=== PATIENT | male | born 1955 | race Caucasian/White ===

== ENCOUNTER 2021-06-28 08:52 | Outpatient (CLI) | payer MEDICAID, SELFPAY ==
--- NOTE | 2021-06-28 06:00 | DI.RAD_ITS ---
Exam(s) XR PAIN CLINIC SACRIOILIAC 2V EXAM: XR PAIN CLINIC SACRIOILIAC 2V CLINICAL HISTORY: DX: Sacroiliac dysfunction TECHNIQUE: 2D and realtime digital imaging was performed. Radiologist not present. CONTRAST MATERIAL: None. COMPARISON: No exams were available for comparison FINDINGS: Fluoroscopy was provided for pain management therapy. Please refer to procedure report or details. Cumulative dose: Ka,r=not give mGy IMPRESSION: RADIATION DOSE DELIVERED:
[2021-06-28 09:25] VITALS: BP 125/78; PULSE 58; RESP 20; TEMP 36.6; O2SAT 99
[2021-06-28] MEDS: Bupivacaine 0.5% Pres-Free 10 ML VIAL IJ (11:27)
[2021-06-28] MEDS: Lidocaine 1% Pres-Free 5 ML VIAL IJ (11:27)
[2021-06-28] MEDS: Lidocaine 2% Pres-Free 5 ML VIAL IJ (11:28)
[2021-06-28] MEDS: methylPREDNISolone ACETATE 40 MG/ML VIAL IJ ×2 (11:28→11:29)
[2021-06-28 11:30] VITALS: BP 155/90; PULSE 51; RESP 15; O2SAT 97
--- NOTE | 2021-06-28 14:56 | PDOC.PAIN_ITS ---
Pain Clinic Procedure Note Procedure Note Procedure Note: Bilateral Lumbosacral Radiofrequency with Coolief Machine PROCEDURE NOTE Date of Service: June 28, 2021 Patient: Jose Torres Provider: Damien Romano DO, MPH Pre Operative Diagnosis: Lumbosacral Spondylosis without Myelopathy Post Operative Diagnosis: Same Pre-procedure pain; VAS= 8/10 PROCEDURE: Radiofrequency Ablation of medial branches - Bilateral L5 and lateral branches of bilateral S1-S3. Jose Torres was brought into the fluoroscopy suite and positioned into the prone position on the fluoroscopy table and allowed to adjust to a position of comfort. A grounding pad was placed on the left thigh. The lumbar region was widely prepped with a chloraprep solution, allowed to air dry and draped in standard sterile surgical fashion. Local anesthesia was provided by 10 mL of 2% Lidocaine delivered with a 25g needle. A 17g 100mm radiofrequency introducer needle was placed to the planned anatomic targets guided with intermittent fluoroscopy with a perpendicular approach to terminally place at the junction of the superior articular process and the transverse process of the base of the sacral ala on the bilateral for the L5 medial branch nerve and around the lateral S1-S3 foramen bilaterally. The stylets were removed and radiofrequency probes with a 4mm active tip were then inserted. Needle tip position of the probes was verified in the AP, oblique, and lateral views. At each site, the DR/Lateral branch sensory nerve was stimulated at 2 Hz to a maximum 1-2 volts determined to finalize safe needle and electrode placement. The patient was awake and responsive during this portion of the procedure. Each target was anesthetized with 1-2 mL of 2% Lidocaine for anesthesia for lesioning and then each target was lesioned at 80 degrees Celsius for 2 minutes and 30 seconds. Tissue impedences were noted to be between 250 and 500 Ohms. A total of 2cc of Depomedrol (40 mg/cc) was distributed throughout the ablations followed by 1 cc of 0.5% Bupivacaine. Electrodes and needles were then removed and bandages placed over the needle placement sites, the patient then returned to the supine position on a stretcher and transported to the recovery room without hemodynamic, neurologic, or allergic reactions. F luoroscopic images were printed for hard copy recording and digitally archived. Follow up plans and appointments were discussed with the Jose . Post procedure instruction was given as documented in nursing documentation and having met discharge criteria, Jose was discharged from the [facility]. COMMENTS: No apparent complications. Post-procedure pain: VAS= 0/10. F/U with our office as needed. I personally performed this entire procedure. Damien Romano DO, MPH Attending Physician Pain Management
== END 2021-06-28 08:53 | disposition home or self-care (01) ==
LOC: PC 08:54
PROVIDERS: PCP Internal Medicine; Visit Provider Preventive Medicine Occupational Medicine
DX: M47.817 Spondylosis without myelopathy or radiculopathy, lumbosacral region (principal)
CPT/HCPCS: 64635; 64636; 72200; J1030

== ENCOUNTER 2021-11-14 12:12 | Outpatient (CLI) | payer MEDICAID, SELFPAY ==
--- NOTE | 2021-11-14 06:00 | DI.RAD_ITS ---
Exam(s) XR PAIN CLINIC LUMBAR SP 2V EXAM: XR PAIN CLINIC LUMBAR SP 2V CLINICAL HISTORY: Dx: Lumbar Spondylosis TECHNIQUE: 2D and realtime digital imaging was performed. COMPARISON: No exams were available for comparison FINDINGS: C-arm fluoroscopy was utilized by Dr. Romano during reported radiofrequency ablation. Hard copies show needle placement bilaterally at what appear to be the L3-4, L4-5, and L5-S1 levels bilaterally. IMPRESSION: RADIATION DOSE DELIVERED: tiny San=20.59 mGy
[2021-11-14 12:21] VITALS: BP 133/81; PULSE 55; RESP 20; TEMP 36.4; O2SAT 99
[2021-11-14] MEDS: Bupivacaine 0.5% Pres-Free 10 ML VIAL IJ (13:44)
[2021-11-14] MEDS: Lidocaine 2% Pres-Free 5 ML VIAL IJ (13:44)
--- NOTE | 2021-11-14 13:44 | PDOC.PAIN ---
Pain Clinic Procedure Note Procedure Note Procedure Note: Bilateral Lumbar Radiofrequency with Coolief Machine PROCEDURE NOTE Date of Service: November 14, 2021 Patient: Jose Torres Provider: Damien Romano DO, MPH Pre Operative Diagnosis: Lumbosacral Spondylosis without Myelopathy Post Operative Diagnosis: Same Post procedure pain; VAS= 8/10 PROCEDURE: Radiofrequency Ablation of medial branches - Bilateral L3 L4 L5 and lateral branches of bilateral S1. Jose Torres was brought into the fluoroscopy suite and positioned into the prone position on the fluoroscopy table and allowed to adjust to a position of comfort. A grounding pad was placed on the left thigh. The lumbar region was widely prepped with a chloraprep solution, allowed to air dry and draped in standard sterile surgical fashion. Local anesthesia was provided by 6 mL of 2% Lidocaine delivered with a 25g needle. A 17g 100 mm radiofrequency introducer needle was placed to the planned anatomic targets guided with intermittent fluoroscopy with a perpendicular approach to terminally place at the junction of the superior articular process and the transverse process of the bilateral L4, L5, the base of the sacral ala on the bilateral for the L5 medial branch nerve and the area between base of the sacral ala to the S1 foramen bilaterally. The stylets were removed and radiofrequency probes with a 4mm active tip were then inserted. Needle tip position of the probes was verified in the AP, oblique, and lateral views. At each site, the medial branch nerve was stimulated at 2 Hz to a maximum 1-2 volts determined to finalize safe needle and electrode placement. The patient was awake and responsive during this portion of the procedure. Each target was anesthetized with 1-2 mL of 2% Lidocaine for anesthesia for lesioning and then each target was lesioned at 80 degrees Celsius for 2 minutes and 30 seconds. Tissue impedences were noted to be between 250 and 500 Ohms. Electrodes and needles were then removed and bandages placed over the needle placement sites, the patient then returned to the supine position on a stretcher and transported to the recovery room without hemodynamic, neurologic, or allergic reactions. Fluoroscopic images were printed for hard copy recording and digitally archived. POST PROCEDURE EVALUATION: IMPRESSION: 1. Summary of procedure. Medication given is documented in the MAR. 2. The patient will be contacted in 1-3 weeks 3. Estimated Blood Loss: <5 mls 4. Fluoroscopy time: Documented in the EMR. Follow up plans and appointments were discussed with the Christopher . Post procedure instruction was given as documented in nursing documentation and having met discharge criteria, Jose was discharged from the [facility]. COMMENTS: No apparent complications. Post-procedure pain: VAS= 1/10. F/U with our office as needed. I personally performed this entire procedure. Damien Romano DO, MPH Attending Physician Pain Management
[2021-11-14] MEDS: methylPREDNISolone ACETATE 40 MG/ML VIAL IJ (13:45)
[2021-11-14 13:55] VITALS: BP 134/84; PULSE 66; RESP 13; O2SAT 97
== END 2021-11-14 12:13 | disposition home or self-care (01) ==
LOC: PC 12:14
PROVIDERS: PCP Internal Medicine; Visit Provider Preventive Medicine Occupational Medicine
DX: M47.817 Spondylosis without myelopathy or radiculopathy, lumbosacral region (principal)
CPT/HCPCS: 64635; 64636; 72100; J1030

== ENCOUNTER 2022-07-11 11:09 | Outpatient (CLI) | payer MEDICARE, MEDICAID, SELFPAY ==
--- NOTE | 2022-07-11 06:00 | DI.RAD_ITS ---
Exam(s) XR PAIN CLINIC LUMBAR SP 2V EXAM: XR PAIN CLINIC LUMBAR SP 2V CLINICAL HISTORY: Dx: Lumbar Spondylosis TECHNIQUE: 2D and realtime digital imaging was performed. CONTRAST MATERIAL: Refer to procedure report. COMPARISON: No exams were available for comparison FINDINGS: Fluoroscopy was provided for Dr. Romano during the performance of a lumbar radiofrequency ablation. P lease refer to the procedure report for complete details. Ka,r=14.1 mGy IMPRESSION:
--- NOTE | 2022-07-11 06:00 | DI.RAD_ITS ---
Exam(s) XR PAIN CLINIC SACRIOILIAC 2V EXAM: XR PAIN CLINIC SACRIOILIAC 2V CLINICAL HISTORY: Dx: Sacroiliac Joint Dysfunction TECHNIQUE: 2D and realtime digital imaging was performed. CONTRAST MATERIAL: Refer to procedure report. COMPARISON: No exams were available for comparison FINDINGS: Fluoroscopy was provided for Dr. Romano during the performance of a sacroiliac joint injection. Ondina gonzalez refer to the procedure report for complete details. Ka,r=4.88 mGy IMPRESSION:
[2022-07-11 11:27] VITALS: BP 121/79; PULSE 50; RESP 20; TEMP 36.6; O2SAT 98
--- NOTE | 2022-07-11 13:02 | PDOC.PAIN_ITS ---
Date of service: 07/11/22 Time of Service: 13:13 Pain Clinic Procedure Note Procedure Note Procedure Note: INTRA-ARTICULAR SI JOINT INJECTION Jose Torres has been referred to the [facility] for intra- articular SI joint injection. COMMENTS: He had a severe injury to his sacrum 30 years ago and had a recent SI MRI. His pre-procedure pain VAS was 8/10 to the right SIJ area. We are also doing the L3-L5 medial branch RFA and right S1 lateral branch RFA Dx: Sacroiliac joint dysfunction Patient was interviewed and the medical record reviewed. There were no medical, pharmacologic, radiographic or other structural contraindications to attempting fluoroscopically guided intra-articular SI joint injection. Risks and expected side effects as well as potential benefit of the procedure were reviewed and voiced concerns addressed. The printed consent form was signed and witnessed. Standard time-out procedure was performed. Patient was placed in the prone position on the fluoroscopy table and automated blood pressure cuff and pulse oximeter applied. The skin entry point for approaching the right SI joint was identified under the most advantageous fluoroscopic view and marked. Following thorough Chlorhexadine preparation of the skin and draping and 1% lidocaine infiltration of the skin entry point and subcutaneous tissues, a 22 gauge spinal needle was placed under fluoroscopic guidance into the right SI joint was identified under the most advantageous fluoroscopic view and marked. Intra-articular placement was confirmed by a clear arthrogram resulting from the injection of 0.25ml Omnipaque 240, 1ml 1% lidocaine, and 40mg Depomedrol were injected intra-articularily with an initial reproduction of a significant component of the usual pain. Vital signs were stable throughout the procedure and were as recorded in the docflowsheet by the nursing staff. If given, dosages of intravenous drugs for anxiolysis and analgesia were documented in MAR. Follow up plans and appointments were discussed with the patient. Post procedure instruction was given as documented in nursing documentation and having met discharge criteria, and was discharged from the [facility]. COMMENTS: Post-procedure pain VAS was 1/10 to the right SIJ area. Damien Romano DO, MPH [facility]-Pain Management [facility] for [facility] Right Lumbar Radiofrequency with Coolief Machine PROCEDURE NOTE Date of Service: July 11, 2022 Patient: Jose Torres Provider: Damien Romano DO, MPH Pre Operative Diagnosis: Lumbosacral Spondylosis without Myelopathy Post Operative Diagnosis: Same Pre procedure pain; VAS= 8/10 PROCEDURE: Radiofrequency Ablation of medial branches - RT L3, L4, L5 and lateral branch of right S1. Jose Torres was brought into the fluoroscopy suite and positioned into the prone position on the fluoroscopy table and allowed to adjust to a position of comfort. A grounding pad was placed on the left thigh. The lumbar region was widely prepped with a chloraprep solution, allowed to air dry and draped in standard sterile surgical fashion. Local anesthesia was provided by 5 mL of 2 % Lidocaine delivered with a 25g needle. A 17g 100 mm radiofrequency introducer needle was placed to the planned anatomic targets guided with intermittent fluoroscopy with a perpendicular approach to terminally place at the junction of the superior articular process and the transverse process of the right L4, L5, the base of the sacral ala on the right for the L5 medial branch nerve and the area between base of the sacral ala to the S1 foramen on the right. The stylets were removed and radiofrequency probes with a 4mm active tip were then inserted. Needle tip position of the probes was verified in the AP, oblique, and lateral views. At each site, the medial branch nerve was stimulated at 2 Hz to a maximum 1-2 volts determined to finalize safe needle and electrode placement. The patient was awake and responsive during this portion of the procedure. Each target was anesthetized with 1-2 mL of 2 % Lidocaine for anesthesia for lesioning and then each target was lesioned at 80 degrees Celsius for 2 minutes and 30 seconds. Tissue impedences were noted to be between 250 and 500 Ohms. I then injected 1/4 cc of Depomedrol (40 mg/cc) followed by 1 cc of 0.5% Bupivacaine at each segmental sensory nerve. Electrodes and needles were then removed and bandages placed over the needle placement sites, the patient then returned to the supine position on a stretcher and transported to the recovery room without hemodynamic, neurologic, or allergic reactions. Fluoroscopic images were printed for hard copy recording and digitally archived. POST PROCEDURE EVALUATION: IMPRESSION: 1. Summary of procedure. Medication given is documented in the MAR. 2. The patient will be contacted in 1-3 weeks 3. Estimated Blood Loss: <5 mls 4. Fluoroscopy time: Documented in the EMR. Follow up plans and appointments were discussed with the Jose . Post procedure instruction was given as documented in nursing documentation and having met discharge criteria, Jose was discharged from the [facility]. COMMENTS: No apparent complications. Post-procedure pain: VAS= 2/10 to the right low back. Damien Romano DO, MPH [facility]-Pain Management [facility] for [facility] CC: Chalo Alexis
[2022-07-11] MEDS: Bupivacaine 0.5% Pres-Free 10 ML VIAL IJ (13:22)
[2022-07-11] MEDS: Lidocaine 2% Pres-Free 5 ML VIAL IJ (13:22)
[2022-07-11] MEDS: methylPREDNISolone ACETATE 40 MG/ML VIAL IJ (13:23)
[2022-07-11] MEDS: Omnipaque 240 MG/ML 50 ML BTL IJ (13:24)
[2022-07-11 13:25] VITALS: BP 144/87; PULSE 50; RESP 20; O2SAT 98
== END 2022-07-11 11:10 | disposition home or self-care (01) ==
LOC: PC 11:13
PROVIDERS: PCP Internal Medicine; Visit Provider Preventive Medicine Occupational Medicine
DX: M53.3 Sacrococcygeal disorders, not elsewhere classified (principal); M54.50 Low back pain, unspecified; M47.817 Spondylosis without myelopathy or radiculopathy, lumbosacral region
CPT/HCPCS: 27096; 64635; 64636; 72100; 72200; G0260; J1030; Q9967

== ENCOUNTER 2022-11-13 10:00 | Outpatient (CLI) | payer MEDICARE, MEDICAID, SELFPAY ==
--- NOTE | 2022-11-13 06:00 | DI.RAD_ITS ---
Exam(s) XR PAIN CLINIC SACRIOILIAC 2V EXAM: XR PAIN CLINIC SACRIOILIAC 2V CLINICAL HISTORY: Dx: Sacroiliac Joint Dysfunction TECHNIQUE: 2D and realtime digital imaging was performed. CONTRAST MATERIAL: Refer to procedure report. COMPARISON: No exams were available for comparison FINDINGS: Fluoroscopy was provided for Dr. Romano during the performance of a right sacroiliac joint injection. Please refer to the procedure report for complete details. Ka,r=4.1 mGy IMPRESSION:
[2022-11-13 10:31] VITALS: BP 116/78; PULSE 61; RESP 20; TEMP 36.6; O2SAT 98
[2022-11-13] MEDS: methylPREDNISolone ACETATE 80 MG/ML VIAL IJ (11:10)
[2022-11-13] MEDS: Omnipaque 240 MG/ML 50 ML BTL IJ (11:10)
[2022-11-13 11:16] VITALS: BP 158/82; PULSE 58; RESP 17; O2SAT 99
--- NOTE | 2022-11-13 14:24 | PDOC.PAIN ---
Date of service: 11/13/22 Time of Service: 11:30 Pain Clinic Procedure Note Procedure Note Procedure Note: INTRA-ARTICULAR SI JOINT INJECTION Jose Torres has been referred to the [facility] for intra-articular SI joint injection. COMMENTS: He had this procedure completed on 07/11/22 and had great relief until he fractured his Tibia and Fibula 6 days later skiing. He had surgery and has been walking in a walking boot, all of which has irritated his low back. Pre-Procedure pain VAS was 7/10. Dx: Sacroiliac joint dysfunction Patient was interviewed and the medical record reviewed. There were no medical, pharmacologic, radiographic or other structural contraindications to attempting fluoroscopically guided intra-articular SI joint injection. Risks and expected side effects as well as potential benefit of the procedure were reviewed and voiced concerns addressed. The printed consent form was signed and witnessed. Standard time-out procedure was performed. Patient was placed in the prone position on the fluoroscopy table and automated blood pressure cuff and pulse oximeter applied. The skin entry point for approaching [right/left/bilateral] SI joints was identified under the most advantageous fluoroscopic view and marked. Following thorough Chlorhexadine preparation of the skin and draping and 1% lidocaine infiltration of the skin entry point and subcutaneous tissues, a 22 gauge spinal needle was placed under fluoroscopic guidance into [right/left/bilateral] SI joints was identified under the most advantageous fluoroscopic view and marked. Intra-articular placement was confirmed by a clear arthrogram resulting from the injection of 0.25ml Omnipaque 240, 1ml 1% lidocaine, and 40mg Depomedrol were injected intra-articularily with an initial reproduction of a significant component of the usual pain. Vital signs were stable throughout the procedure and were as recorded in the docflowsheet by the nursing staff. If given, dosages of intravenous drugs for anxiolysis and analgesia were documented in MAR. Follow up plans and appointments were discussed with the patient. Post procedure instruction was given as documented in nursing documentation and having met discharge criteria, and was discharged from the [facility] Management Center. COMMENTS: Post-procedure pain VAS was 1/10. Damien Romano DO, MPH [facility]-Pain Management [facility] for [facility] CC: Chalo Alexis
== END 2022-11-13 10:01 | disposition home or self-care (01) ==
PROVIDERS: PCP Internal Medicine; Visit Provider Preventive Medicine Occupational Medicine
DX: M46.1 Sacroiliitis, not elsewhere classified (principal); M54.50 Low back pain, unspecified
CPT/HCPCS: 27096; 72200; J1040; Q9967

== ENCOUNTER 2023-04-02 12:50 | Outpatient (CLI) | payer MEDICARE, MEDICAID, SELFPAY ==
--- NOTE | 2023-04-02 06:00 | DI.RAD_ITS ---
Exam(s) XR PAIN CLINIC SACRIOILIAC 2V EXAM: XR PAIN CLINIC SACRIOILIAC 2V CLINICAL HISTORY: Dx: Sacroiliac Joint Dysfunction TECHNIQUE: 2D and realtime digital imaging was performed. CONTRAST MATERIAL: Refer to procedure report. COMPARISON: No exams were available for comparison FINDINGS: Fluoroscopy was provided for Dr. Romano during the performance of a right sacroiliac joint injection. Please refer to the procedure report for complete details. Ka,r=4.32 mGy IMPRESSION:
--- NOTE | 2023-04-02 06:00 | DI.RAD_ITS ---
Exam(s) XR PAIN CLINIC LUMBAR SP 2V EXAM: XR PAIN CLINIC LUMBAR SP 2V CLINICAL HISTORY: Dx: Lumbar Spondylosis TECHNIQUE: 2D and realtime digital imaging was performed. CONTRAST MATERIAL: Refer to procedure report. COMPARISON: No exams were available for comparison FINDINGS: Fluoroscopy was provided for Dr. Romano during the performance of a pain management therapy. Please r efer to the procedure report for complete details. Ka,r=17.7 mGy IMPRESSION:
[2023-04-02 13:01] VITALS: BP 113/80; PULSE 62; RESP 20; TEMP 36.6; O2SAT 98
[2023-04-02 14:19] VITALS: BP 138/82; PULSE 65; RESP 12; O2SAT 96
--- NOTE | 2023-04-02 14:25 | PDOC.PAIN_ITS ---
Date of service: 04/02/23 Time of Service: 14:25 Pain Managment Procedure Note Procedure Note Procedure Note: PROCEDURE NOTE RIGHT LUMBAR RADIOFREQUENCY ABLATION Date of Service: April 02, 2023 Patient:? Jose Torres? Provider:? Damien Romano DO, MPH Jose Torres [facility] right Lumbar Radiofrequency Ablation with the [employer] Machine.? Pre Operative Diagnosis: Lumbosacral Spondylosis without Myelopathy Post Operative Diagnosis: Same Pre procedure pain; VAS= 7/10 Comments: He had >8 months of relief from his last RFA to these levels. PROCEDURE: Radiofrequency Ablation of medial branches - right L3, L4, L5 and lateral branches of bilateral S1. Jose?was interviewed and the medical record was reviewed.? There were no medical, pharmacologic, radiographic or other structural contraindications to attempting fluoroscopically guided RIGHT Lumbar Radiofrequency Ablation.?Risks and expected side effects as well as potential benefit of the procedure were reviewed with Jose, and the patient's voiced concerns were addressed.? The printed consent form was signed.? Standard time-out procedure was performed. Jose was brought into the fluoroscopy suite and positioned into the prone position on the fluoroscopy table and allowed to adjust to a position of comfort. A grounding pad was placed on the left abdomen. The sterile field was prepared using chlorhexidine preparation of the skin and sterile draping. Local anesthesia superficial and deep was provided by local infiltration of 2% lidocaine. A 17g 100 mm radiofrequency introducer needle was placed to the planned anatomic targets guided with intermittent fluoroscopy with a perpendicular approach to terminally place at the junction of the superior articular process and the transverse process of the right L4, L5, the base of the sacral ala on the right for the L5 medial branch nerve and the area between base of the sacral ala to the S1 foramen on the right. The stylets were removed and radiofrequency probes with a 4mm active tip were then inserted. Needle tip position of the probes was verified in the AP, oblique, and lateral views. At each site, the medial branch nerve was stimulated at 2 Hz to a maximum 1-2 volts determined to finalize safe needle and electrode placement. The patient was awake and responsive during this portion of the procedure. Each target was anesthetized with 1-2 mL of 2 % Lidocaine for anesthesia for lesioning and then each target was lesioned at 80 degrees Celsius for 2 minutes and 30 seconds. Tissue impedances were noted to be between 250 and 500 Ohms. There was no unusual discomfort expressed by Jose. I next injected 1/4 cc of Depomedrol (40 mg/cc) followed by 1 cc of 0.5% Bupivacaine at each segmental sensory nerve. The needles were withdrawn without difficulty and bandages placed over the needle placement sites, the patient was observed and was without hemodynamic, neurologic, or allergic reactions. Fluoroscopic images were digitally archived. POST PROCEDURE EVALUATION: IMPRESSION: 1. Summary of procedure. Medication given is documented in the MAR. 2. Follow up plan: Jose to contact [facility] needed.?This procedure may be repeated if the patient achieves at least 50% improvement in pain/function for at least 6 months. 3. Estimated Blood Loss: <5 mls 4. Fluoroscopy time: Documented in the EMR. Follow up plans and appointments were discussed with the Jose. Post procedure instruction was given as documented in nursing documentation and having met discharge criteria, Jose was [facility] from the [facility]. COMMENTS: No apparent complications. Post-procedure pain: VAS= 0/10. I personally completed the entire procedure. DAMIEN ROMANO DO, MPH ABPM&R - Subspecialty board certification in Pain Medicine [facility] [facility] PROCEDURE NOTE RIGHT INTRA-ARTICULAR SACROILIAC JOINT INJECTION Date of Service: April 02, 2023 Patient: Jose Torres Provider: Damien Romano DO, MPH COMMENTS: I previously evaluated the patient in the office and their symptoms in relation to the sacroiliac joint pain have remained the same. He acheived >6 months of pain relief from the last right sacroiliac joint injection. Pre-operative diagnosis: Sacroiliac joint dysfunction Post-operative diagnosis: Same Pre-procedure pain: VAS= 7/10 Jose Torres has been referred to our [facility] for a Right intra-articular Sacroiliac joint injection. Jose was interviewed and the medical record reviewed. There were no medical, pharmacologic, radiographic or other structural contraindications to at tempting a fluoroscopically-guided, contrast-enhanced, intra-articular Sacroiliac joint injection. The risks, benefits, and potential side effects of this procedure were reviewed with the patient. Questions and concerns were addressed. After it was clear that Jose was fully informed about the procedure, the printed consent form was signed by the patient and myself. Jose was placed in the prone position on the fluoroscopy table and an automated blood pressure cuff, 3 lead EKG, and pulse oximeter were applied. The skin entry point for approaching the Right sacroiliac joint was identified under the most advantageous fluoroscopic view and marked. Following thorough Chlorhexadine preparation of the skin and draping with sterile surgical drapes, 2 mls of 1% lidocaine was infiltrated into the skin at the entry point and the surrounding subcutaneous tissues. Next, a 3.5 22G spinal needle was placed under fluoroscopic guidance into the Right sacroiliac joint. Intra-articular placement was confirmed by a clear arthrogram resulting from the injection of 0.25ml of Omnipaque-240. Next, 1 ml of Depo- Medrol 40 mg/ml was injected intra- articularly with an initial reproduction of a significant component of the usual pain. This was followed with 1 ml of 1% Lidocaine. The needle was then removed without difficulty. (49 ml of Omnipaque-240 was wasted). Jose's vital signs were stable throughout the procedure and were as recorded in nursing records. Follow up plans and appointments were discussed with Jose. Post procedure instructions were given as documented in nursing records. Having met discharge criteria, Jose was [facility] from the [facility]. COMMENTS: Post-procedure pain: VAS= 0/10. If the patient receives at least 50% improvement in pain and/or function for at least 3 months, this procedure can be repeated if needed. I personally performed this entire procedure. DAMIEN ROMANO DO, MPH ABPMR-subspecialty board certification in Pain Medicine [facility]
[2023-04-02] MEDS: Omnipaque 240 MG/ML 50 ML BTL IJ (14:29)
[2023-04-02] MEDS: Bupivacaine 0.5% Pres-Free 10 ML VIAL IJ (14:30)
[2023-04-02] MEDS: Lidocaine 2% Pres-Free 5 ML VIAL IJ (14:31)
[2023-04-02] MEDS: methylPREDNISolone ACETATE 40 MG/ML VIAL IJ (14:32)
== END 2023-04-02 12:51 | disposition home or self-care (01) ==
LOC: PC 12:50
PROVIDERS: PCP Internal Medicine; Visit Provider Preventive Medicine Occupational Medicine
DX: M47.817 Spondylosis without myelopathy or radiculopathy, lumbosacral region (principal); M54.50 Low back pain, unspecified; M53.3 Sacrococcygeal disorders, not elsewhere classified
CPT/HCPCS: 27096; 64635; 64636; 72100; 72200; J1030; Q9967

== ENCOUNTER 2023-11-27 07:53 | Outpatient (CLI) | payer MEDICARE, MEDICAID, SELFPAY ==
[2023-11-27 08:00] VITALS: BP 144/88; PULSE 48; RESP 20; TEMP 36.4; O2SAT 98
--- NOTE | 2023-11-27 08:54 | DI.RAD_ITS ---
Exam(s) XR PAIN CLINIC LUMBAR SP 2V EXAM: XR PAIN CLINIC LUMBAR SP 2V CLINICAL HISTORY: DX: Lumbar spondylosis. TECHNIQUE: Fluoroscopy was provided for the referring physician for guidance with performing pain cl inic injection procedure. COMPARISON: No exams were available for comparison FINDINGS: Please see procedure note for details. Fluoro time: 51.3 seconds RADIATION DOSE DELIVERED: Jaswinderr=12.32 mGy
[2023-11-27 09:00] VITALS: BP 154/87; PULSE 51; RESP 15; O2SAT 97
[2023-11-27] MEDS: Nerve Block Tray 1 EACH MC (09:02)
[2023-11-27] MEDS: Lidocaine 2% Pres-Free 5 ML VIAL IJ (09:02)
[2023-11-27] MEDS: Bupivacaine 0.5% Pres-Free 10 ML VIAL IJ (09:03)
[2023-11-27] MEDS: methylPREDNISolone ACETATE 40 MG/ML VIAL IJ (09:03)
--- NOTE | 2023-11-27 09:05 | PDOC.PAIN_ITS ---
Date of service: 11/27/23 Time of Service: 09:05 Pain Managment Procedure Note Procedure Note Procedure Note: PROCEDURE NOTE RIGHT LUMBAR RADIOFREQUENCY ABLATION Date of Service: November 27, 2023 Patient:? Jose Torres? Provider:? Damien Romano DO, MPH Jose Torres has been [facility] to the [facility] Right Lumbar Radiofrequency Ablation with the [employer] Machine.? Pre Operative Diagnosis: Lumbosacral Spondylosis without Myelopathy Post Operative Diagnosis: Same Pre procedure pain; VAS= 8/10 Comments: He had >8 months of >50% pain relief with his last RFA at these levels. PROCEDURE: Radiofrequency Ablation of medial branches - right L3, L4, L5 and lateral branches of right S1. Jose?was interviewed and the medical record was reviewed.? There were no medical, pharmacologic, radiographic or other structural contraindications to attempting fluoroscopically guided RIGHT Lumbar Radiofrequency Ablation.?Risks and expected side effects as well as potential benefit of the procedure were reviewed with Jose, and the patient's voiced concerns were addressed.? The printed consent form was signed.? Standard time-out procedure was performed. Jose was brought into the fluoroscopy suite and positioned into the prone position on the fluoroscopy table and allowed to adjust to a position of comfort. A grounding pad was placed on the left abdomen. The sterile field was prepared using chlorhexidine preparation of the skin and sterile draping. Local anesthesia superficial and deep was provided by local infiltration of 2% lidocaine. A 17g 100 mm radiofrequency introducer needle was placed to the planned anatomic targets guided with intermittent fluoroscopy with a perpendicular approach to terminally place at the junction of the superior articular process and the transverse process of the right L4, L5, the base of the sacral ala on the right for the L5 medial branch nerve and the area between base of the sacral ala to the S1 foramen on the right. The stylets were removed and radiofrequency probes with a 4mm active tip were then inserted. Needle tip position of the probes was verified in the AP, oblique, and lateral views. At each site, the medial branch nerve was stimulated at 2 Hz to a maximum 1-2 volts determined to finalize safe needle and electrode placement. The patient was awake and responsive during this portion of the procedure. Each target was anesthetized with 1-2 mL of 2 % Lidocaine for anesthesia for lesioning and then each target was lesioned at 80 degrees Celsius for 2 minutes and 30 seconds. Tissue impedances were noted to be between 250 and 500 Ohms. There was no unusual discomfort expressed by Jose. 1/4 cc of Depomedrol (80 mg/cc) followed by 1 cc of 0.5% Marcaine was injected at each segmental sensory nerve. The needles were withdrawn without difficulty and bandages placed over the needle placement sites, the patient was observed and was without hemodynamic, neurologic, or allergic reactions. Fluoroscopic images were digitally archived. POST PROCEDURE EVALUATION: IMPRESSION: 1. Summary of procedure. Medication given is documented in the MAR. 2. Follow up plan: Jose to contact [facility] as needed.?This procedure may be repeated if the patient achieves at least 50% improvement in pain/function for at least 6 months. 3. Estimated Blood Loss: <5 mls 4. Fluoroscopy time: Documented in the EMR. Follow up plans and appointments were discussed with the Sjer. Post procedure instruction was given as documented in nursing documentation and having met discharge criteria, Jose was discharged from the [place] [facility]. COMMENTS: No apparent complications. Post-procedure pain: VAS= 1/10. I personally completed the entire procedure. DAMIEN ROMANO DO, MPH ABPM&R - Subspecialty board certification in Pain Medicine [facility] [facility]
== END 2023-11-27 07:54 | disposition home or self-care (01) ==
LOC: PC 07:53
PROVIDERS: PCP Internal Medicine; Visit Provider Preventive Medicine Occupational Medicine
DX: M54.50 Low back pain, unspecified (principal); M47.817 Spondylosis without myelopathy or radiculopathy, lumbosacral region
CPT/HCPCS: 64635; 64636; 72100; J0665; J1010

== ENCOUNTER 2024-08-19 11:39 | Outpatient (CLI) | payer MEDICARE, MEDICAID, SELFPAY ==
[2024-08-19] VITALS (16 sets, daily range): BP systolic 134–173; BP diastolic 79–115; PULSE 51–66; RESP 12–20; TEMP 37; O2SAT 97–99
--- NOTE | 2024-08-19 13:45 | DI.RAD_ITS ---
Exam(s) XR PAIN CLINIC LUMBAR SP 2V EXAM: XR PAIN CLINIC LUMBAR SP 2V CLINICAL HISTORY: DX: Lumbar Spondylosis. TECHNIQUE: Fluoroscopy was provided for the referring physician for guidance with performing pain cl inic injection procedure. COMPARISON: No exams were available for comparison FINDINGS: Please see procedure note for details. Fluoro time: 54.7 seconds RADIATION DOSE DELIVERED: Jaswinderr=17.55 mGy
[2024-08-19] MEDS: Lidocaine 2% Multi-Dose 20 ML VIAL IJ (13:54)
[2024-08-19] MEDS: Bupivacaine 0.5% Pres-Free 10 ML VIAL IJ (13:54)
[2024-08-19] MEDS: Nerve Block Tray 1 EACH MC (13:55)
[2024-08-19] MEDS: methylPREDNISolone ACETATE 40 MG/ML VIAL IJ (13:55)
--- NOTE | 2024-08-19 13:57 | PDOC.PAIN ---
Date of service: 08/19/24 Time of Service: 13:57 Pain Managment Procedure Note Procedure Note Procedure Note: PROCEDURE NOTE BILATERAL LUMBAR RADIOFREQUENCY ABLATION Date of Service: August 19, 2024 Patient:? Jose Torres? Provider:? Damien Romano DO, MPH Jose Torres has been [facility] to the [facility] for Bilateral Lumbar Radiofrequency Ablation with the [employer] Machine.? Pre Operative Diagnosis: Lumbosacral Spondylosis without Myelopathy ICD-10 M47.816 Post Operative Diagnosis: Same Pre procedure pain; VAS= 7/10 Comments: He had a confirmatory LMBB on the left L3-S1 at [facility] and had great relief. He had >6 months of >50% pain relief with his last right sided RFA. We planned to complete both sides today. PROCEDURE: Radiofrequency Ablation of medial branches - bilateral L3, L4, L5 and lateral branches of bilateral S1. Jose?was interviewed and the medical record was reviewed.? There were no medical, pharmacologic, radiographic or other structural contraindications to attempting fluoroscopically guided BILATERAL Lumbar Radiofrequency Ablation.?Risks and expected side effects as well as potential benefit of the procedure were reviewed with Jose, and the patient's voiced concerns were addressed.? The printed consent form was signed.? Standard time-out procedure was performed. Jose was brought into the fluoroscopy suite and positioned into the prone position on the fluoroscopy table and allowed to adjust to a position of comfort. A grounding pad was placed on the left abdomen. The sterile field was prepared using chlorhexidine preparation of the skin and sterile draping. Local anesthesia superficial and deep was provided by local infiltration of 2% lidocaine. A 17g 100 mm radiofrequency introducer needle was placed to the planned anatomic targets guided with intermittent fluoroscopy with a perpendicular approach to terminally place at the junction of the superior articular process and the transverse process of the bilateral L4, L5, the base of the sacral ala on the bilateral for the L5 medial branch nerve and the area between base of the sacral ala to the S1 foramen bilaterally. The stylets were removed and radiofrequency probes with a 4mm active tip were then inserted. Needle tip position of the probes was verified in the AP, oblique, and lateral views. At each site, the medial branch nerve was stimulated at 2 Hz to a maximum 1-2 volts determined to finalize safe needle and electrode placement. The patient was awake and responsive during this portion of the procedure. Each target was anesthetized with 1-2 mL of 2 % Lidocaine for anesthesia for lesioning and then each target was lesioned at 80 degrees Celsius for 2 minutes and 30 seconds. Tissue impedances were noted to be between 250 and 500 Ohms. I then injected 1/4 cc of Depomedrol (40 mg/cc) followed by 1 cc of 0.5% Bupivacaine at each segmental sensory nerve. There was no unusual discomfort expressed by Jose. The needles were withdrawn without difficulty and bandages placed over the needle placement sites, the patient was observed and was without hemodynamic, neurologic, or allergic reactions. Fluoroscopic images were digitally archived. POST PROCEDURE EVALUATION: IMPRESSION: 1. Summary of procedure. Medication given is documented in the MAR. 2. Follow up plan: Jose to contact [facility] needed.?This procedure may be repeated if the patient achieves at least 50% improvement in pain/function for at least 6 months. 3. Estimated Blood Loss: <5 mls 4. Fluoroscopy time: Documented in the EMR. Follow up plans and appointments were discussed with the Sjer. Post procedure instruction was given as documented in nursing documentation and having met discharge criteria, Jose was discharged from the [place] [facility]. This advanced procedure uses cooled radiofrequency energy to safely target the sensory nerves responsible for sending pain signals.1 A radiofrequency generator transmits a small current of Radiofrequency energy through an insulated electrode, or probe, placed within tissue. Ionic heating, produced by the friction of charged molecules, thermally deactivates the nerves responsible for sending pain signals to the brain. Radiofrequency energy heats and cools the tissue at the site of pain. Unlike other Radiofrequency procedures, Coolief circulates water through the device while heating nervous tissue to create a larger treatment area, increasing the opportunity to help with pain. This combination targets the pain-transmitting nerves without excessive heating, leading to pain relief. COMMENTS: No apparent complications. Post-procedure pain: VAS= 0-1/10. I personally completed the entire procedure. DAMIEN ROMANO DO, MPH ABPM&R - Subspecialty board certification in Pain Medicine [facility] [facility]
== END 2024-08-19 11:40 | disposition home or self-care (01) ==
PROVIDERS: PCP Internal Medicine; Visit Provider Preventive Medicine Occupational Medicine
DX: M54.50 Low back pain, unspecified (principal); M47.816 Spondylosis without myelopathy or radiculopathy, lumbar region
CPT/HCPCS: 64635; 64636; 72100; J0665; J1010; J2003

== ENCOUNTER 2025-06-02 12:08 | Outpatient (CLI) | payer MEDICARE, MEDICAID, SELFPAY ==
--- NOTE | 2025-06-02 06:00 | DI.RAD_ITS ---
Exam(s) XR PAIN CLINIC LUMBAR SP 2V EXAM: XR PAIN CLINIC LUMBAR SP 2V CLINICAL HISTORY: DX: Lumbar Spondylosis TECHNIQUE: 2D and realtime digital imaging was performed. CONTRAST MATERIAL: Refer to procedure report. COMPARISON: No exams were available for comparison FINDINGS: Fluoroscopy was provided for Dr. Romano during the performance of a lumbar radiofrequency ablation. Please refer to the procedure report for complete details. Ka,r=20 mGy IMPRESSION: RADIATION DOSE DELIVERED: 0.0 0.0 0
[2025-06-02 12:21] VITALS: BP 155/79; PULSE 56; RESP 20; TEMP 37; O2SAT 98
--- NOTE | 2025-06-02 13:59 | PDOC.PAIN_ITS ---
Date of service: 06/02/25 Time of Service: 13:59 Pain Managment Procedure Note Procedure Note Procedure Note: PROCEDURE NOTE BILATERAL LUMBAR RADIOFREQUENCY ABLATION Date of Service: June 02, 2025 Patient:? Jose Torres? Provider:? Damien Romano DO, MPH Jose Torres has been [facility] to the [facility] for Bilateral Lumbar Radiofrequency Ablation with the [employer] Machine.? Pre Operative Diagnosis: Lumbosacral Spondylosis without Myelopathy ICD-10 M47.816 Post Operative Diagnosis: Same Pre procedure pain; VAS= 7/10 Comments: >9 months of >50% pain relief with his last RFA from July 2024. PROCEDURE: Radiofrequency Ablation of medial branches - bilateral L3, L4, L5 and lateral branches of bilateral S1. Jose?was interviewed and the medical record was reviewed.? There were no medical, pharmacologic, radiographic or other structural contraindications to attempting fluoroscopically guided BILATERAL Lumbar Radiofrequency Ablation.?Risks and expected side effects as well as potential benefit of the procedure were reviewed with Jose, and the patient's voiced concerns were addressed.? The printed consent form was signed.? Standard time-out procedure was performed. Jose was brought into the fluoroscopy suite and positioned into the prone position on the fluoroscopy table and allowed to adjust to a position of comfort. A grounding pad was placed on the left abdomen. The sterile field was prepared using chlorhexidine preparation of the skin and sterile draping. Local anesthesia superficial and deep was provided by local infiltration of 2% lidocaine. A 17g 100 mm radiofrequency introducer needle was placed to the planned anatomic targets guided with intermittent fluoroscopy with a perpendicular approach to terminally place at the junction of the superior articular process and the transverse process of the bilateral L4, L5, the base of the sacral ala on the bilateral for the L5 medial branch nerve and the area between base of the sacral ala to the S1 foramen bilaterally. The stylets were removed and radiofrequency probes with a 4mm active tip were then inserted. Needle tip position of the probes was verified in the AP, oblique, and lateral views. At each site, the medial branch nerve was stimulated at 2 Hz to a maximum 1-2 volts determined to finalize safe needle and electrode placement. The patient was awake and responsive during this portion of the procedure. Each target was anesthetized with 1-2 mL of 2 % Lidocaine for anesthesia for lesioning and then each target was lesioned at 80 degrees Celsius for 2 minutes and 30 seconds. Tissue impedances were noted to be between 250 and 500 Ohms. Next I injected 1/4 cc of Depomedrol (40 mg/cc) followed by 0.5 cc of 0.5% Bupivacine at each segmental sensory nerve. There was no unusual discomfort expressed by Jose. The needles were withdrawn without difficulty and bandages placed over the needle placement sites, the patient was observed and was without hemodynamic, neurologic, or allergic reactions. Fluoroscopic images were digitally archived. POST PROCEDURE EVALUATION: IMPRESSION: 1. Summary of procedure. Medication given is documented in the MAR. 2. Follow up plan: Jose to contact [place] [facility] as needed.?This procedure may be repeated if the patient achieves at least 50% improvement in pain/function for at least 6 months. 3. Estimated Blood Loss: <5 mls 4. Fluoroscopy time: Documented in the EMR. Follow up plans and appointments were discussed with the Jose. Post procedure instruction was given as documented in nursing documentation and having met discharge criteria, Jose was discharged from the [facility]. This advanced procedure uses cooled radiofrequency energy to safely target the sensory nerves responsible for sending pain signals.1 A radiofrequency generator transmits a small current of Radiofrequency energy through an insulated electrode, or probe, placed within tissue. Ionic heating, produced by the friction of charged molecules, thermally deactivates the nerves responsible for sending pain signals to the brain. Radiofrequency energy heats and cools the tissue at the site of pain. Unlike other Radiofrequency procedures, Coolief circulates water through the device while heating nervous tissue to create a larger treatment area, increasing the opportunity to help with pain. This combination targets the pain- transmitting nerves without excessive heating, leading to pain relief. COMMENTS: No apparent complications. Post-procedure pain: VAS= 0/10. I personally completed the entire procedure. DAMIEN ROMANO DO, MPH ABPM&R - Subspecialty board certification in Pain Medicine [facility] Coding Conscious Sedation used for procedure: Yes CPT Codes: Single Facet Joint, Lumbar/Sacral *BILATERAL* - [id number] ([id number]~G) Single Facet Joint, Lumbar/Sacral cool each add'l - 95038E ([id number]~G) Additional Codes: Date of Service (42340) Diagnoses: Lumbosacral spondylosis without myelopathy
[2025-06-02] MEDS: Bupivacaine 0.5% Pres-Free 10 ML VIAL IJ (14:19)
[2025-06-02] MEDS: Lidocaine 2% Pres-Free 5 ML VIAL IJ (14:19)
[2025-06-02] MEDS: Nerve Block Tray 1 EACH MC (14:19)
[2025-06-02] MEDS: methylPREDNISolone ACETATE 40 MG/ML VIAL IJ (14:19)
[2025-06-02 14:20] VITALS: BP 178/98; PULSE 54; RESP 16; O2SAT 98
== END 2025-06-02 12:09 | disposition home or self-care (01) ==
LOC: PC 12:08
PROVIDERS: PCP Internal Medicine; Visit Provider Preventive Medicine Occupational Medicine
DX: M47.816 Spondylosis without myelopathy or radiculopathy, lumbar region (principal); M54.50 Low back pain, unspecified
CPT/HCPCS: 64635; 64636; 72100; J0665; J1010